=== PATIENT | male | born 2000 | race Caucasian/White ===

== ENCOUNTER 2018-07-08 13:34 | Emergency (ER) | payer OTHER ==
[~2018-07-08] VITALS: Ht 165.1 cm; Wt 63.5 kg
== END 2018-07-08 21:13 | disposition home or self-care (01) ==
LOC: ER 13:34
DX: G40.89 Other seizures (principal)

== ENCOUNTER 2018-12-13 11:23 | Emergency (ER) | payer OTHER ==
[~2018-12-13] VITALS: Ht 165.1 cm; Wt 68.5 kg
[2018-12-13] MEDS ORDERED: KEPPRA500 MG (12:26)
== END 2018-12-13 14:46 | disposition home or self-care (01) ==
LOC: ER 11:23
DX: S01.02XA Laceration with foreign body of scalp, initial encounter (principal); W45.8XXA Other foreign body or object entering through skin, initial encounter; Y93.89 Activity, other specified; Y92.89 Other specified places as the place of occurrence of the external cause; Y99.8 Other external cause status